=== PATIENT | female | born 1980 | race Caucasian/White ===

== ENCOUNTER 2019-11-22 00:48 | Emergency (ER) | payer BC ==
[~2019-11-22] VITALS: Ht 165.1 cm; Wt 58.0 kg
--- NOTE | 2019-11-22 01:09 | NUR ---
Pleasant lady here noting that she felt dizzy tonight and sensation that her heart was racing/palps, 911 called, pt notes that she was given an iv and fluids and inititally felt better and was planning on not coming in but then began again to not feel quite right, arrives with patent remsa iv. Placed on monitor, reveal NSR without ectopy, skin PWD. Pt denies any pain or SOB with this episode, does note that she has been having allergies and took a mucinex earlier today otherwise takes no medications, does have a history SVT, notes last significant episode event 11 years ago and states that she has intermittent episodes that she is able to clear with coughing.
[2019-11-22 01:27] LABS: BASOPHILS # (AUTO) 0.01 x10^3/uL (0-0.1); BASOPHILS % (AUTO) 0 % (0-1); EOSINOPHILS # (AUTO) 0.15 x10^3/uL (0-0.4); EOSINOPHILS % (AUTO) 3 % (1-7); LYMPHOCYTES # (AUTO) 1.27 x10^3/uL (1-3.4); LYMPHOCYTES % (AUTO) 25 % (22-44); MD NO; MEAN CORPUSCULAR HEMOGLOBIN 29.7 pg (27.0-34.8); MEAN CORPUSCULAR HGB CONC 33.2 g/dL (32.4-35.8); MEAN CORPUSCULAR VOLUME 89.4 fL (80-100); MEAN PLATELET VOLUME 7.9 fL (7.4-10.4); MONOCYTES # (AUTO) 0.35 x10^3/uL (0.2-0.8); MONOCYTES % (AUTO) 7 % (2-9); NEUTROPHILS # (AUTO) 3.29 x10^3/uL (1.8-6.8); NEUTROPHILS % (AUTO) 65 % (42-75); PLATELET COUNT 235 x10^3/uL (130-400); RED BLOOD COUNT 4.43 x10^6/uL (3.82-5.3)
[2019-11-22 01:38] LABS: ALBUMIN 3.5 g/dL (3.4-5.0); ANION GAP 6 mmol/L (5-15); CALCIUM 8.3 mg/dL (8.5-10.1); CHLORIDE 109 mmol/L (98-107); CREATININE 0.84 mg/dL (0.55-1.02)
[2019-11-22 01:42] LABS: TROPONIN I 0.021 ng/mL (0.000-0.045)
--- NOTE | 2019-11-22 01:51 | NUR ---
resting quietly, remains nsr monitor without ectopy, at bedside, call degroot remains in reach and pt aware of use.
--- NOTE | 2019-11-22 02:01 | NUR ---
resting quietly, remains nsr monitor without ectopy, taking ice chips. Very pleasant family
[2019-11-22 02:36] VITALS: BP 115/73
== END 2019-11-22 02:48 | disposition home or self-care (01) ==
LOC: ED 01:21
DX: R42 Dizziness and giddiness (principal); R00.2 Palpitations; I45.9 Conduction disorder, unspecified; R07.9 Chest pain, unspecified
CPT/HCPCS: 36415; 71046; 80048; 82040; 84443; 84484; 85025; 93005; 99285